=== PATIENT | female | born 1965 | race Caucasian/White ===

== ENCOUNTER 2016-05-12 16:01 | Inpatient (IN) | payer OTHER ==
[2016-05-12] MEDS ORDERED: MULTIVITAMIN (16:41)
[2016-05-12] MEDS ORDERED: TAMOXIFEN CITRA20 M1 PO (16:41)
[2016-05-12] MEDS ORDERED: CLARITIN10 M6 PO (16:42)
[2016-05-13 05:12] LABS: HCT-HEMATOCRIT 37.7 % (34.0-49.0); HGB-HEMOGLOBIN 12.2 gm/dl (12.0-15.5); IMMATURE GRANULOCYTES ABSOLUTE 0.01 tho/cmm (0-0.03); IMMATURE GRANULOCYTES PERCENT 0.1 % (0-0.3); LYMPH % 6.4 % (20-45); LYMPH ABSOLUTE COUNT 0.7 tho/cmm (0.8-4.5); MCH (MEAN CORPUSCULAR HGB) 28.2 pg (28.0-32.0); MCHC MEAN CORPUSCULAR HGB CONC 32.4 % (32.0-36.0); MCV (MEAN CELL VOLUME) 87.1 fl (82.0-96.0); MEAN PLATELET VOLUME 8.8 cmc (9.4-12.4); MONO % 2.3 % (0-12); MONOCYTE ABSOLUTE COUNT 0.2 tho/cmm (0.0-1.2); NEUTROPHIL ABSOLUTE COUNT 9.7 tho/cmm (1.6-8.0); NEUTROPHIL-AUTOMATED 9.7 tho/cmm (1.6-8.0); NEUTROPHILS % 91.2 % (40-80); PLATELET COUNT 234 tho/cmm (150-450); RED BLOOD COUNT 4.33 mil/cmm (4.00-5.20); RED CELL DISTRIBUTION WIDTH 12.6 % (12.4-16.4); WHITE BLOOD COUNT 10.6 tho/cmm (4.0-10.0)
[2016-05-14 16:17] LABS: CREATININE 0.74 mg/dl (0.50-1.10); eGFR VALUE FOR BLACK >90 mL/Min
[2016-05-15] MEDS ORDERED: NORCO 5-325 TA1 EACH PO (14:42)
[2016-05-15] MEDS ORDERED: AUGMENTIN 875-1 EAC2 PO (14:43)
== END 2016-05-15 15:15 | DRG 340 ==
LOC: SRG 16:01 → SHSB 16:02 → PACU 19:26 → 5WD 20:51
PROVIDERS: ADMIT Surgery
PROC: 0W9N30Z Drainage of Female Perineum with Drainage Device, Percutaneous Approach (ICD-10-PCS; principal; 2016-05-12)
PROC: 0DTJ4ZZ Resection of Appendix, Percutaneous Endoscopic Approach (ICD-10-PCS; principal; 2016-05-12)
DX: K35.2 Acute appendicitis with generalized peritonitis (principal); Z79.810 Long term (current) use of selective estrogen receptor modulators (SERMs); Z86.718 Personal history of other venous thrombosis and embolism; Z86.14 Personal history of Methicillin resistant Staphylococcus aureus infection; Z90.11 Acquired absence of right breast and nipple; Z79.899 Other long term (current) drug therapy; Z85.3 Personal history of malignant neoplasm of breast
CPT/HCPCS: J1335; J1885; J2175; J2270; J2405; J7030; J8501